=== PATIENT | female | born 1935 | race Caucasian/White ===

== ENCOUNTER → 2016-08-14 | Outpatient (CLI) | payer MEDICARE, BC ==
[2016-08-14 14:57] LABS: Blood Urea Nitrogen 31 mg/dL (7-17); Non-African American GFR(MDRD) >60 (>60 ml/min/1.73 sqM)
--- NOTE | 2016-08-15 07:26 | CT ---
EXAMINATION TYPE: CT ChestAbdPelvis w con DATE OF EXAM: 08/14/2016 5:00 PM COMPARISON: Previous study dated 05/08/2016. 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 CT DLP: 780.1 mGycm Automated exposure control for dose reduction was used. TECHNIQUE: Helical acquisition through the abdomen and pelvis was obtained without oral contrast but following the intravenous administration of 100 mL of Omnipaque 300. The data was formatted in the a xial, coronal and sagittal projections. FINDINGS: There is atelectasis or scarring in the right middle lobe, unchanged from previous. There i s also some scarring in the left lingula. The lungs are otherwise clear. There is no significant axillary, internal mammary, mediastinal or hilar adenopathy. There is no pleu ral or pericardial fluid. The heart is upper limits of normal in size. Within the abdomen, the liver is prominent measuring 20 cm. The spleen and gallbladder are unremarkab le. Both adrenal glands appear normal. The pancreas is unremarkable. Both kidneys demonstrate function and appear morphologically normal. There is no significant retroperitoneal, iliac or inguinal adenopathy. Bladder is unremarkable. The uterus and ovaries are not visualized. There is no significant diverticular change and there is no radiographic evidence of diverticulitis. The appendix is not visualized with certainty. Small bowel loops are normal. There is no evidence of free fluid or free air. There is facet arthropathy in the lower lumbar spine. There is a degenerative grade 1 spondylolisthes is of L4 on L5. There is evidence of hypertrophic spondylosis in the lower dorsal spine. IMPRESSION: 1. NO EVIDENCE OF ADENOPATHY AT THIS TIME. 2. HEPATOMEGALY. 3. DEGENERATIVE CHANGES WITHIN THE SPINE.
--- NOTE | 2016-08-15 07:32 | CT ---
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 CT DLP: 746.6 mGycm Automated exposure control for dose reduction was used. CONTRAST: CT scan of the facial bones is performed with IV Contrast, patient injected with 100 mL of Omnipaque 300. TECHNIQUE: CT scan of the sinuses is performed without contrast, axial images are obtained, coronal r eformatted images are also reviewed. FINDINGS: Beam hardening artifact is present at the level of the mandible. There is opacification of the right maxillary sinus. Small amount of air is within the central portio n. Mild mucosal thickening within the left maxillary sinus. There is opacification of the anterior ri ght ethmoid air cells. Frontal sinuses are aplastic. There is opacification of the sphenoid sinus. There is poor visualization of the osseous wall of the sphenoid sinus adjacent to the left optic fiss ure right maxillary wall resection and partial ethmoidectomy may be present posteriorly. There is thi ckening of the right maxillary wall. Septum is midline. Right uncinectomies been performed. Left ostiomeatal unit is patent. There is some loss of the floor the orbit on the right near the previous hiatus semilunaris. This is stable from c omparison. Enhancement pattern of the sinuses appears stable. IMPRESSION: 1. Stable postsurgical changes through the sinuses. There is opacification of the sphenoid and of the right maxillary sinus. Underlying tumor and sinusitis as well as postsurgical changes would be withi n the differential. Continued monitoring is recommended.
== END | disposition home or self-care (01) ==
LOC: RADCTMAIN 13:48
PROVIDERS: ATTEND Internal Medicine Hematology & Oncology
DX: C85.90 Non-Hodgkin lymphoma, unspecified, unspecified site (principal); J34.89 Other specified disorders of nose and nasal sinuses; R16.0 Hepatomegaly, not elsewhere classified; Z98.890 Other specified postprocedural states
CPT/HCPCS: 82565; 84520; 70487; 71260; 74177; 36415; Q9967

== ENCOUNTER → 2016-11-12 | Outpatient (CLI) | payer MEDICARE, BC ==
[2016-11-12 10:34] LABS: Blood Urea Nitrogen 29 mg/dL (7-17); Non-African American GFR(MDRD) >60 (>60 ml/min/1.73 sqM)
--- NOTE | 2016-11-12 12:51 | CT ---
EXAMINATION TYPE: CT facial bones w con DATE OF EXAM: 11/12/2016 12:39 PM COMPARISON: August 14, 2016 HISTORY: Patient has no complaints at time of service. Patient has history of lymphoma and sinus ca. CT DLP: 621.5 mGycm Automated exposure control for dose reduction was used. CONTRAST: CT scan of the facial bones is performed with IV Contrast, patient injected with 100 mL of Omnipaque 300. TECHNIQUE: CT scan of the sinuses is performed without contrast, axial images are obtained, coronal r eformatted images are also reviewed. FINDINGS: Postsurgical changes of right medial maxillary antrectomy noted. There is evidence of mucosal thicken ing with peripheral enhancement noted. Soft tissue is noted to surround the posterior wall of the rig ht maxillary sinus with osseous irregularity noted. There is also osseous irregularity involving the floor of the right orbit and right zygoma. The left maxillary sinus that demonstrates minimal mucosal thickening. There is soft tissue expansion of the sphenoid sinus unchanged from prior study. There i s osseous irregularity involving adjacent ethmoid air cell. IMPRESSION: 1. Stable soft tissue expansion of the sphenoid sinus without definite cavernous sinus extension at t his time. 2. Irregular enhancement right maxillary sinus with soft tissue surrounding the posterior wall of the right maxillary sinus. Osseous irregularity as noted above all stable. No new masses appreciated.
--- NOTE | 2016-11-12 12:59 | CT ---
EXAMINATION TYPE: CT ChestAbdPelvis w con DATE OF EXAM: 11/12/2016 12:40 PM COMPARISON: August 14, 2016 HISTORY: Patient has no complaints at time of service. Patient has history of lymphoma and sinus ca. CT DLP: 737.8 mGycm CONTRAST: CT scan of the chest, abdomen and pelvis is performed with Oral Contrast and with IV Contrast, patien t injected with 100 mL of Omnipaque 300. CT Chest: LUNGS: The lungs are clear and free of infiltrate or atelectasis. No pulmonary nodule or mass is det ected. No pleural effusion. Mild scattered subpleural fibrosis. MEDIASTINUM: Thoracic aorta is of normal caliber. Atheromatous changes identified. The heart is mild ly enlarged. No evidence for mediastinal mass or adenopathy. HILAR STRUCTURES: No evidence for mass. No hilar adenopathy is appreciated. OTHER: No significant abnormality. CONTRAST CT ABDOMEN AND PELVIS FINDINGS: LIVER/GB: No calcified gallstones. There is evidence of hepatic steatosis. No space occupying hepa tic lesion. Biliary tree is of normal caliber. PANCREAS: No inflammation. No distinct mass. SPLEEN: No splenic enlargement. No lesion seen. ADRENALS: No nodule. No thickening. KIDNEYS/BLADDER: Extrarenal pelvis seen bilaterally left greater than right. No hydronephrosis. No n ephrolithiasis. No disctinct renal mass. BOWEL: Normal appendix. Normal bowel caliber. No inflammation. GENITAL ORGANS: No gross abnormality. LYMPH NODES: No greater than 1cm abdominal or pelvic lymph nodes are appreciated. AORTA: No significant abnormality. OSSEOUS STRUCTURES: Degenerative changes of the spine. OTHER: No significant additional abnormality is seen. IMPRESSION: 1. No evidence for adenopathy within the chest abdomen or pelvis. 2. Hepatic steatosis with mild hepatomegaly.
== END | disposition home or self-care (01) ==
LOC: RADCTMAIN 09:35
PROVIDERS: ATTEND Internal Medicine Hematology & Oncology
DX: C83.31 Diffuse large B-cell lymphoma, lymph nodes of head, face, and neck (principal); K76.0 Fatty (change of) liver, not elsewhere classified; R16.0 Hepatomegaly, not elsewhere classified; Z88.2 Allergy status to sulfonamides
CPT/HCPCS: 82565; 84520; 70487; 71260; 74177; 36415; Q9967; J1642

== ENCOUNTER → 2017-04-10 | Outpatient (CLI) | payer MEDICARE, BC ==
[2017-04-10 09:42] LABS: Blood Urea Nitrogen 24 mg/dL (7-17); Non-African American GFR(MDRD) 57 (>60 ml/min/1.73 sqM)
--- NOTE | 2017-04-10 11:48 | CT ---
EXAMINATION TYPE: CT ChestAbdPelvis w con DATE OF EXAM: 04/10/2017 COMPARISON: 11/12/2016 and 01/08/2016 HISTORY: Lymphoma follow up CT DLP: 1679 mGycm. Automated Exposure Control for Dose Reduction was Utilized. CONTRAST: CT scan of the thorax, abdomen and pelvis is performed with IV Contrast, patient injected with 80 mL of Visipaque 320. FINDINGS: LUNGS: The lungs are grossly clear, there is no concerning parenchymal mass identified. 3 mm pulmonar y nodule seen within the right middle lobe on series 4 image 28, which is unchanged retrospectively i n comparison to the prior examinations. There is no pleural effusion or pneumothorax seen. The trach eobronchial tree is patent. Chronic pleural parenchymal scarring is seen within the right middle lobe and lingula. MEDIASTINUM: There are no greater than 1 cm hilar or mediastinal lymph nodes. No pericardial effusi on is seen. Heart is again mildly enlarged. OTHER: Three-vessel coronary calcifications are identified, moderate in degree. LIVER/GB: No evidence of hepatic steatosis on the current examination. No intrahepatic biliary ductal dilatation. Hepatic parenchyma enhances homogeneously. Gallbladder is unremarkable. PANCREAS: There is pancreatic parenchymal mild atrophy without ductal prominence without identifiable pancreatic head lesion. This is similar in comparison to the prior exams. SPLEEN: No significant abnormality is seen. ADRENALS: Adrenal gland are unchanged in comparison to priors with slight thickening of the left adre nal gland in comparison to the right without discrete measurable nodule likely relating to adrenal gl and hyperplasia. KIDNEYS: No significant abnormality is seen. BOWEL: Few sigmoid diverticula are present without pericolonic fat stranding. Rectum is nondistended. Moderate amount retained stool is seen throughout the nondilated bowel. GENITAL ORGANS: Again the uterus appears to be surgically absent. LYMPH NODES: No greater than 1cm abdominal or pelvic lymph nodes are appreciated. OSSEOUS STRUCTURES: Mild multilevel degenerative changes are seen. OTHER: Abdominal aorta is of normal course and caliber with moderate calcific atheromatous changes. IMPRESSION: 1. No evidence of adenopathy within the chest, abdomen, or pelvis in this patient with a provided his tory of lymphoma. 2. Mild pancreatic ductal prominence. MRCP could be utilized for further evaluation if clinically ind icated. 3. Colonic diverticulosis without evidence of diverticulitis.
--- NOTE | 2017-04-10 12:26 | CT ---
EXAMINATION TYPE: CT facial bones w con DATE OF EXAM: 04/10/2017 COMPARISON: 11/12/2016 HISTORY: Lymphoma and sinus carcinoma. CT DLP: 438 mGycm Automated exposure control for dose reduction was used. CONTRAST: CT scan of the facial bones is performed with IV Contrast, patient injected with 80 mL of Visipaque 3 20. TECHNIQUE: CT scan of the sinuses is performed without contrast, axial images are obtained, coronal r eformatted images are also reviewed. FINDINGS: Stable expansile soft tissue masses seen within the sphenoid sinus with remodeling of the s phenoid bone and thinning of the anterior margin abutting the ethmoid sinuses with persistent cortica l erosion on series 4 image 27 measuring 4.4 mm. There is dehiscence of the lateral wall at the media l aspect of the medial rectus on the left on series 4 image 25 there is also erosion of the posterior left lateral wall abutting the cavernous sinus and left internal carotid artery on series 4 image 26 as well as of the supraclinoid portion of the left internal carotid artery on series 3 image 24. Persistent circumferential mucosal thickening within the right maxillary sinus is seen with antrostom y defect and mucoperiosteal thickening as well as cortical disruption of the inferior medial wall and lamellated high density on series 3 image 37 internally representing hemorrhage and/or complex debri s such as fungal infection. The left maxillary sinus contains only a scant amount of mucosal thickening as do the ethmoid sinuses . Frontal sinuses are hypoplastic but well aerated. Mastoid air cells and inner ears are unremarkable . 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 Note the exam is not optimized for the evaluation of the intracranial structures however confluent areas of hypoattenuation are see n within the periventricular and subcortical white matter as well as dystrophic calcification of the left caudate head and symmetric prominence of the peripheral sulci and ventricular system. IMPRESSION: 1. 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 2. Redemonstration of right maxillary sinus complex mucosal thickening and mucoperiosteal thickening with irregular inferior lateral wall and focal areas of cortical erosion. 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 This finding is si milar to the prior exam of 11/12/2016.
== END | disposition home or self-care (01) ==
LOC: RADPROMAIN 08:58
PROVIDERS: ATTEND Internal Medicine Hematology & Oncology
DX: K57.30 Diverticulosis of large intestine without perforation or abscess without bleeding (principal); K86.89 Other specified diseases of pancreas; J34.89 Other specified disorders of nose and nasal sinuses; C83.31 Diffuse large B-cell lymphoma, lymph nodes of head, face, and neck; Z88.2 Allergy status to sulfonamides
CPT/HCPCS: 82565; 84520; 70487; 71260; 74177; Q9967; J1642

== ENCOUNTER → 2017-08-13 | Outpatient (CLI) | payer MEDICARE, BC ==
[2017-08-13 11:33] LABS: Blood Urea Nitrogen 33 mg/dL (7-17)
--- NOTE | 2017-08-13 13:15 | CT ---
EXAMINATION TYPE: CT facial bones w con DATE OF EXAM: 08/13/2017 COMPARISON: 04/10/2017 and PET/CT 03/02/2016 HISTORY: 81-year-old female Follow up to lymphoma, originated Rt facial TECHNIQUE: Contiguous axial scanning of the facial bones performed with IV Contrast, patient injected with 100 mL of Omnipaque 300. Coronal reconstructions performed. CT DLP: 635.1 mGycm Automated exposure control for dose reduction was used. FINDINGS: Visualized intracranial structures show confluent white matter hypodensities that could relate to bryan or radiation therapy or severe changes of chronic small vessel ischemic disease. Orbits and globes ap pear intact and mastoid air cells appear clear. Reactive valentino-osteogenesis involving the right maxillary sinus wall with a continued moderate to sever e mucosal thickening. The intrinsic hyperdense material show some improvement as does the mild retrom axillary soft tissue thickening. A small air-fluid level may be present here. Redemonstrated expansile lesion of the left sphenoid sinus measuring up to 3.0 cm versus 2.7 cm on and 2.9 cm on 11/12/2016. This was noted to be nonmetabolic on the patient's 03/02/2016 PET/CT. IMPRESSION: 1. OVERALL STABLE APPEARANCE WITH CHRONIC REACTIVE BONY CHANGES OF THE RIGHT MAXILLARY SINUS LEON AN D RIGHT ORBITAL FLOOR TO THE PATIENT'S PREVIOUS LYMPHOMA. MUCOSAL THICKENING AND SOME FLUID REMAINS I N THE RIGHT MAXILLARY SINUS AND MINIMAL RETROMAXILLARY SOFT TISSUE THICKENING IS STABLE FROM 04/10/20 17, IMPROVED FROM 11/12/2016. NO CONVINCING FINDINGS OF TUMOR RECURRENCE. 2. CHRONIC EXPANSILE LESION OF THE SPHENOID SINUS NOTED TO BE NONMETABOLIC ON THE 03/02/2016 PET/CT, NE OBABLE MUCOCELE.
--- NOTE | 2017-08-13 13:44 | CT ---
EXAMINATION TYPE: CT ChestAbdPelvis w con DATE OF EXAM: 08/13/2017 COMPARISON: 04/10/2017 and 05/08/2016 HISTORY: 81-year-old female Follow up to lymphoma, originated Rt facial TECHNIQUE: Contiguous axial scanning of the chest, abdomen, and pelvis performed with IV Contrast, pa tient injected with 100 mL of Omnipaque 300. Delayed images through the kidneys were obtained. Bryant l/sagittal reconstructions performed. CT DLP: 993.5 mGycm Automated exposure control for dose reduction was used. FINDINGS: CHEST: Facial bones reported separately. Right anterior chest wall injection port with catheter tip at the cavoatrial junction. Heart upper limits of normal in size without pericardial effusion. Coronary vessel calcifications are present in remarkable for coronary artery disease. Aorta normal caliber with a mild atherosclerotic calcifications and conventional arch vessel branchin g anatomy. A 1.6 cm hypodense nodule posterior left thyroid lobe is stable from 04/10/2017 but not clearly seen on 05/08/2016. No thoracic lymphadenopathy. Evaluation of the lungs show streaky areas of scarring anteriorly and at the lung bases. No consolida tion or pleural effusion. ABDOMEN: Liver mildly enlarged measuring 18.9 cm craniocaudal. Portal venous system is patent. No focal liver lesions seen. No biliary ductal dilatation. A small 1 cm cyst within the uncinate process, axial image 57 is unchanged from 05/08/2016. Similar mi ld diffuse pancreatic atrophy. Gallbladder, adrenal glands, kidneys, and spleen appear within normal limits. No dilated small bowel, free fluid, or free air. No mesenteric or retroperitoneal lymphadenopathy. Mild to moderate atherosclerotic calcifications abdominal aorta and iliac arteries. Moderate stool burden. Oral contrast progressed to the hepatic flexure. There is diverticulosis at th e junction of the descending and sigmoid colon without pericolonic inflammatory change. Pelvis: Bladder incompletely distended. Uterus surgically absent. Multiple pelvic phleboliths. The right ovar y is visualized. Left ovary not clearly seen. No abnormal fluid collection in the pelvis or pelvic ly mphadenopathy. Bones: Degenerative changes at the pubic symphysis, SI joints, and lower lumbar spine with grade 1 anterolis thesis at L4-L5. IMPRESSION: 1. NO SUSPICIOUS LYMPHADENOPATHY TO SUGGEST LYMPHOMA IN THE CHEST, ABDOMEN, OR PELVIS. 2. A 1.6 CM HYPODENSE NODULE IN THE LEFT LOBE OF THE THYROID GLAND WAS NOT CLEARLY SEEN ON 05/08/2016. RECOMMEND THYROID ULTRASOUND TO FURTHER EVALUATE. 3. STABLE 1 CM UNCINATE PROCESS CYST COMPARED TO 05/08/2016. 4. LEFT-SIDED DIVERTICULOSIS.
== END | disposition home or self-care (01) ==
LOC: RADPROMAIN 10:23
PROVIDERS: ATTEND Internal Medicine Hematology & Oncology
DX: C83.31 Diffuse large B-cell lymphoma, lymph nodes of head, face, and neck (principal); K86.2 Cyst of pancreas; K57.30 Diverticulosis of large intestine without perforation or abscess without bleeding; J32.0 Chronic maxillary sinusitis; J32.3 Chronic sphenoidal sinusitis
CPT/HCPCS: 82565; 84520; 70487; 71260; 74177; Q9967; J1642

== ENCOUNTER → 2017-12-15 | Outpatient (CLI) | payer MEDICARE, BC ==
--- NOTE | 2017-12-15 13:18 | CT ---
EXAMINATION TYPE: CT facial bones w con DATE OF EXAM: 12/15/2017 COMPARISON: CT facial bones August 13, 2017 and older studies back to January 06, 2016 HISTORY: Lymphoma right side orbital area CT DLP: 546.61 mGycm Automated exposure control for dose reduction was used. CONTRAST: CT scan of the facial bones is performed with IV Contrast, patient injected with 80 mL of Isovue 300. TECHNIQUE: CT scan of the facial bones is performed with IV contrast, axial images are obtained, jean carlos nal reformatted images are also reviewed. FINDINGS: Deformity and thickening with sclerosis involving maxillary sinus davis most prominent righ t posterior lateral wall remains present. There is persistent patchy fluid in the right maxillary sin us slightly improved from most recent study. There is no suspicious new abnormal soft tissue density involving the right cheek, sinus, or orbital region without significant change from most recent CT. L arge lobulated mass was present on original study at this level. Oval well-defined hypodense area pos terior lateral aspect right maxillary sinus axial image 39 could reflect prominent focal fat is uncha nged from most recent study. There is persistent hyperdense or heterogeneous enhancing sphenoid sinus mass measuring 2.3 x 1.8 cm axial image 53 not significantly changed from prior study. This is unchanged in appearance from PET C T March 02, 2016 axial image 42. There is thinning of the adjacent bone without destruction. There is mild diffuse cerebral atrophy and moderate to advanced hypodensity in the deep and periventr icular white matter favoring product of chronic small vessel ischemic change in the visualized brain parenchyma. There is dominant distal left vertebral artery with calcified peripheral plaque redemonst rated. IMPRESSION: No new suspicious hypodense soft tissue masses to suggest recurrent lymphoma. No signifi cant change from most recent CT.
--- NOTE | 2017-12-15 13:26 | CT ---
EXAMINATION TYPE: CT ChestAbdPelvis w con DATE OF EXAM: 12/15/2017 COMPARISON: CT chest abdomen and pelvis August 13, 2017 and older studies. PET/CT March 02, 2016 HISTORY: Lymphoma on face progress study. Originally diagnosed 2015. CT DLP: 1774.39 mGycm. Automated Exposure Control for Dose Reduction was Utilized. CONTRAST: CT scan of the thorax, abdomen and pelvis is performed with oral and with IV Contrast, patient inject ed with 80 mL of Isovue 300. FINDINGS: LUNGS: Anterior scarring bilateral mid and lower lungs is redemonstrated. No suspicious new nodule or mass is present. Tracheobronchial tree is patent. No pleural effusion or pneumothorax is noted bilat erally MEDIASTINUM: There are no greater than 1 cm hilar or mediastinal lymph nodes. No pericardial effusi on is seen. There is stable mild cardiomegaly. Main pulmonary artery measures 3.0 cm diameter axial image 24, adjacent ascending aorta measures up to 3.3 cm in diameter. There is mild to moderate mixed plaque in the aorta. There is coronary artery calcification redemonstrated which is noted marker for coronary artery disease. OTHER: There is stable right internal jugular Mediport catheter. Suspect surgical clip left breast ax ial image 23 unchanged from prior. Stable 1.5 cm posterior left thyroid nodule axial image 10. LIVER/GB: No significant abnormality is appreciated. PANCREAS: Some mild generalized atrophy with ductal prominence of pancreas is unchanged from prior st udies. Stable 1.2 x 0.7 cm thin-walled cystic lesion uncinate process axial image 55. SPLEEN: No significant abnormality is seen. ADRENALS: Stable asymmetric thickening to left adrenal gland favors benign hyperplasia. KIDNEYS: No significant abnormality is seen. BOWEL: A few diverticula in the proximal sigmoid colon are redemonstrated. GENITAL ORGANS: Scattered pelvic phleboliths are present. LYMPH NODES: No greater than 1cm abdominal or pelvic lymph nodes are appreciated. OSSEOUS STRUCTURES: There is moderate multilevel spurring in the thoracolumbar spine. Exaggerated spi nal curvature on sagittal images is redemonstrated. OTHER: There is moderate calcified plaque of aorta extending into branch vessels. IMPRESSION: No new adenopathy is seen to suggest lymphoma recurrence.
== END | disposition home or self-care (01) ==
LOC: RADPROMAIN 08:27
PROVIDERS: ATTEND Internal Medicine Hematology & Oncology
DX: C83.31 Diffuse large B-cell lymphoma, lymph nodes of head, face, and neck (principal); Z88.2 Allergy status to sulfonamides
CPT/HCPCS: 82565; 84520; 70487; 71260; 74177; J1642; Q9967

== ENCOUNTER → 2018-04-21 | Outpatient (CLI) | payer MEDICARE, BC ==
--- NOTE | 2018-04-21 14:44 | CT ---
EXAMINATION TYPE: CT ChestAbdPelvis w con DATE OF EXAM: 04/21/2018 COMPARISON: 12/15/2017 HISTORY: 82-year-old female f/u lymphoma TECHNIQUE: Contiguous axial scanning of the chest, abdomen, and pelvis performed with IV Contrast, pa tient injected with 100 mL of Isovue 300. Delayed images through the kidneys were obtained. Coronal/s agittal reconstructions performed. CT DLP: 1522.13 mGycm Automated exposure control for dose reduction was used. FINDINGS: Chest: Heart upper limits of normal in size without pericardial effusion. Coronary vessel calcifications are present in remarkable for coronary artery disease. Right anterior chest wall injection port with catheter tip at the lower SVC. Aorta normal caliber with conventional arch vessel branching anatomy and mild atelectatic calcificati ons. Borderline sized caliber to the main right and left pulmonary arteries measuring up to 2.6 cm suggest ing underlying pulmonary hypertension. No thoracic lymphadenopathy. Evaluation of the lungs show strandy areas of atelectasis or scarring especially in the mid and lower lungs. No consolidation or pleural effusion. ABDOMEN: Liver mildly enlarged measuring 18.4 cm craniocaudal. Portal venous system is patent. No biliary duct al dilatation. Right adrenal gland, right kidney, spleen, pancreas appear within normal limits. Mild diffuse thickening of the left adrenal gland is unchanged. Cortical calcification upper pole left kidney is unchanged. No dilated small bowel, free fluid, or free air. Numerous nonenlarged mid mesenteric lymph nodes are unchanged. Moderate stool burden. Oral contrast progressed to the transverse colon. There is diverticulosis at t he sigmoid colon without pericolonic inflammatory change. Pelvis: Bladder partially distended. Multiple surgical clips in the pelvis status post hysterectomy. What anabell ears to be the right ovary is utilized. Left ovary not clearly seen. No abnormal fluid collection in the pelvis or pelvic lymphadenopathy seen. Bones: Mild degenerative changes at the hips and SI joints. Additional degenerative changes lower lumbar spi ne with grade 1 anterolisthesis at L4-L5. No osseous destructive process. Endplate spondylosis lower thoracic spine. IMPRESSION: 1. NO SUSPICIOUS LYMPHADENOPATHY TO SUGGEST RECURRENT LYMPHOMA. 2. POSSIBLE UNDERLYING PULMONARY ARTERIAL HYPERTENSION, BORDERLINE HEPATOMEGALY (18.4 CM), AND SIGMOI D DIVERTICULOSIS.
--- NOTE | 2018-04-21 14:59 | CT ---
EXAMINATION TYPE: CT facial bones w con DATE OF EXAM: 04/21/2018 COMPARISON: 12/15/2017 HISTORY: 82-year-old female f/u lymphoma TECHNIQUE: Contiguous axial scanning of the facial bones performed with IV Contrast, patient injected with 100 mL of Isovue 300. Coronal reconstructions performed. CT DLP: 522.30 mGycm Automated exposure control for dose reduction was used. FINDINGS: Partially visualized right IJ catheter. Moderate brain atrophy and patchy changes of chronic small vessel ischemic disease. Orbits and globes appear intact. Redemonstrated expansile soft tissue lesion within the sphenoid sinus with similar thinning or erosio n through the floor of the sella. This measures 2.6 x 1.8 cm, relatively unchanged allowing for diffe rences in measurement technique. Chronic osseous thickening of the right maxillary sinus davis with submitted. Mucoid debris. Mild muc osal thickening left maxillary sinus and scattered throughout the ethmoid air cells redemonstrated. Cerumen within the bilateral external auditory canals. Nasal pharynx and visualized oropharynx are clear. IMPRESSION: 1. STABLE 2.6 CM SOFT TISSUE LESION CENTERED WITHIN THE SPHENOID SINUS THINNING OR CHRONICALLY ERODIN G THROUGH THE FLOOR OF THE SELLA. 2. 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
== END | disposition home or self-care (01) ==
LOC: RADPROMAIN 09:59
PROVIDERS: ATTEND Internal Medicine Hematology & Oncology
DX: C83.31 Diffuse large B-cell lymphoma, lymph nodes of head, face, and neck (principal); J34.89 Other specified disorders of nose and nasal sinuses; K57.30 Diverticulosis of large intestine without perforation or abscess without bleeding; R16.0 Hepatomegaly, not elsewhere classified; Z88.2 Allergy status to sulfonamides
CPT/HCPCS: 82565; 84520; 70487; 71260; 74177; J1642; Q9967

== ENCOUNTER 2018-07-15 04:21 | Emergency (ER) | payer MEDICARE, BC ==
[2018-07-15 04:37] LABS: Glucose,Whole Blood 182 mg/dL (75-99)
[2018-07-15 04:39] LABS: Appearance,Urine Clear (Clear); Bilirubin,Urine Negative (Negative); Blood,Urine Negative (Negative); Color,Urine Light Yellow; Glucose,Urine (UA) 4+ (Negative); Ketones,Urine Negative (Negative); Leukocyte Esterase,Urine Negative (Negative); Nitrite,Urine Negative (Negative); PH, Urine 5.5 (5.0-8.0); Protein,Urine Negative (Negative); Specific Gravity,Urine 1.003 (1.001-1.035); Urobilinogen,Urine <2.0 mg/dL (<2.0)
[2018-07-15] MEDS ORDERED: SODIUM CHLORIDE 0.9% 1,000 ML IV STA (04:55)
[2018-07-15 05:18] LABS: Basophils # (A) 0.1 k/uL (0-0.2); Basophils % (A) 2 %; Eosinophils # (A) 0.3 k/uL (0-0.7); Eosinophils % (A) 4 %; HCT 42.9 % (34.0-46.0); Lymphocytes # (A) 1.2 k/uL (1.0-4.8); Lymphocytes % (A) 20 %; MCH 30.9 pg (25.0-35.0); MCHC 32.8 g/dL (31.0-37.0); MCV 94.4 fL (80.0-100.0); Mean Platelet Volume 7.1; Monocytes # (A) 0.4 k/uL (0-1.0); Monocytes % (A) 7 %; Neutrophils # (A) 3.9 k/uL (1.3-7.7); Neutrophils % (A) 65 %; Platelet Count 261 k/uL (150-450); RBC 4.54 m/uL (3.80-5.40); RDW 13.1 % (11.5-15.5)
[2018-07-15 05:30] LABS: Albumin 4.2 g/dL (3.5-5.0); Calcium 9.2 mg/dL (8.4-10.2); Potassium 4.1 mmol/L (3.5-5.1); Total Bilirubin 0.6 mg/dL (0.2-1.3); Total Protein 6.5 g/dL (6.3-8.2)
[2018-07-15 05:32] LABS: INR 1.1 (<1.2); Partial Thromboplastin Time 22.9 sec (22.0-30.0); Prothrombin Time 11.2 sec (9.0-12.0)
--- NOTE | 2018-07-15 05:37 | ED ---
General Adult HPI - General Chief complaint: Nausea/Vomiting/Diarrhea Stated complaint: weakness,upper abd pain Time Seen by Provider: 07/15/18 04:55 Source: patient Mode of arrival: ambulatory Limitations: no limitations - History of Present Illness Initial comments: Is a pleasant 82-year-old female who is brought to the ED today by her son-in- law for evaluation of generalized malaise and inability to sleep. Patient reports that over the weekend she had some nausea vomiting and diarrhea, she states that she saw her primary care physician and was prescribed an antiemetic medication. She reports she has not had any further vomiting or diarrhea since Friday. She reports that she is just not feeling well and has not been able to sleep. Patient reports she was awake all night not feeling well at which time she decided contact her son-in-law to bring the hospital for evaluation. Patient denies any specific complaints aside from the inability to sleep. She denies any headache, vision changes, runny stuffy nose, cough congestion, chest pain, palpitations when nausea, vomiting change or bowel or bladder habits. She denies any rashes or injuries. - Related Data Home Medications Medication Instructions Recorded Confirmed Benazepril/Hydrochlorothiazide 1 tab PO DAILY 01/06/16 01/27/16 [Lotensin Hct 20-12.5 mg Tablet] Esomeprazole Magnesium [NexIUM] 40 mg PO BID 01/06/16 01/27/16 metFORMIN HCL 1,000 mg PO BID 01/06/16 01/27/16 NIFEdipine [Procardia XL] 90 mg PO DAILY 01/07/16 01/27/16 Vits A,C,E/Lutein/Minerals 1 tab PO BID 01/07/16 01/27/16 [Ocuvite with Lutein Tablet] Ascorbic Acid [Vitamin C] 500 mg PO DAILY 01/27/16 01/27/16 glipiZIDE [Glipizide Xl] 10 mg PO DAILY 01/27/16 01/27/16 Previous Rx's Medication Instructions Recorded Atorvastatin [Lipitor] 40 mg PO HS tab 01/09/16 Citalopram Hydrobromide [CeleXA] 20 mg PO DAILY tab 01/09/16 Labetalol [Trandate] 200 mg PO DAILY tab 01/09/16 Allergies Allergy/AdvReac Type Severity Reaction Status Date / Time Sulfa (Sulfonamide Allergy Unknown Verified 07/15/18 04:30 Antibiotics) Review of Systems ROS Statement: Those systems with pertinent positive or pertinent negative responses have been documented in the HPI. ROS Other: All systems not noted in ROS Statement are negative. Past Medical History Past Medical History: Cancer, Diabetes Mellitus, GERD/Reflux, Hyperlipidemia, Hypertension, Osteoarthritis (OA) Additional Past Medical History / Comment(s): lymphoma, hx skin cancer, some memory loss at times, History of Any Multi-Drug Resistant Organisms: None Reported Past Surgical History: Appendectomy, Hysterectomy, Tonsillectomy Additional Past Surgical History / Comment(s): [facility] mallory cataracts, ORIF left ankle, Past Anesthesia/Blood Transfusion Reactions: No Reported Reaction Past Psychological History: Anxiety, Depression Smoking Status: Never smoker Past Alcohol Use History: None Reported Past Drug Use History: None Reported - Past Family History Mother Family Medical History: Cancer Additional Family Medical History / Comment(s): abdominal cancer Father History Unknown: Yes Family Medical History: Cancer Additional Family Medical History / Comment(s): brain tumor Brother(s) Family Medical History: Cancer General Exam - General Exam Comments Initial Comments: Physical Exam GENERAL: Patient is well-developed and well-nourished. Patient is nontoxic and well- hydrated and is in no distress. HENT: Normocephalic, Atraumatic. EYES: PERRL, EOMI PULMONARY: Unlabored respirations. No audible rales rhonchi or wheezing was noted. CARDIOVASCULAR: There is a regular rate and rhythm without any murmurs gallops or rubs. ABDOMEN: Soft and nontender with normal bowel sounds. SKIN: Skin is clear with no lesions or rashes and otherwise unremarkable. : Deferred NEUROLOGIC: Patient is alert and oriented x3. Moving all extremities spontaneously MUSCULOSKELETAL: Normal extremities with adequate strength and full range of motion. No lower extremity swelling or edema. No calf tenderness. PSYCHIATRIC: Normal psychiatric evaluation. Limitations: no limitations Limitations: no limitations Course Vital Signs 07/15/18 07/15/18 07/15/18 04:27 05:57 06:06 Temperature 97.6 F 98.3 F Pulse Rate 65 73 Respiratory 17 17 19 Rate Blood Pressure 146/93 155/99 O2 Sat by Pulse 95 96 Oximetry EKG Findings - EKG Comments: EKG Findings:: EKG obtained at 4:43 AM, rate is 66 there is a P-wave before each QRS, rhythm is sinus, there is leftward deviation, normal intervals, IL 162 , QRS 80, QTC 417. There is no acute ST elevations or depressions no evidence of acute ischemia infarction or arrhythmia. Medical Decision Making - Medical Decision Making She was seen and evaluated history is obtained from patient and son-in-law Patient with recent nausea or vomiting, now having generalized fatigue Labs and a G were ordered EKG is nonischemic Labs no significant abnormalities urinalysis no evidence to be TIA I signed patient was reevaluated after receiving 1 L IV fluids, patient resting comfortably reports feeling much better after fluids. Patient was reassured by her normal labs no signs of urinary infection. At this time patient is eager for discharge home she states she is feeling very hungry for the first time in a few days and would like to get breakfast on the drive home. All questions pertaining to care were answered best my ability return parameters were discussed the patient was discharged home in stable condition. - Lab Data Result diagrams: 07/15/18 05:05 07/15/18 05:05 Lab Results 07/15/18 07/15/18 07/15/18 Range/Units 04:30 04:36 05:05 WBC 6.0 (3.8-10.6) k/uL RBC 4.54 (3.80-5.40) m/uL Hgb 14.0 (11.4-16.0) gm/dL Hct 42.9 (34.0-46.0) % MCV 94.4 (80.0-100.0) fL MCH 30.9 (25.0-35.0) pg MCHC 32.8 (31.0-37.0) g/dL RDW 13.1 (11.5-15.5) % Plt Count 261 (150-450) k/uL Neutrophils % 65 % Lymphocytes % 20 % Monocytes % 7 % Eosinophils % 4 % Basophils % 2 % Neutrophils # 3.9 (1.3-7.7) k/uL Lymphocytes # 1.2 (1.0-4.8) k/uL Monocytes # 0.4 (0-1.0) k/uL Eosinophils # 0.3 (0-0.7) k/uL Basophils # 0.1 (0-0.2) k/uL PT (9.0-12.0) sec INR (<1.2) APTT (22.0-30.0) sec Sodium (137-145) mmol/L Potassium (3.5-5.1) mmol/L Chloride (98-107) mmol/L Carbon Dioxide (22-30) mmol/L Anion Gap mmol/L BUN (7-17) mg/dL Creatinine (0.52-1.04) mg/dL Est GFR (CKD-EPI)AfAm (>60 ml/min/1.73 sqM) Est GFR (CKD-EPI)NonAf (>60 ml/min/1.73 sqM) Glucose (74-99) mg/dL POC Glucose (mg/dL) 182 H (75-99) mg/dL POC Glu Nursing Home Administrator ID Yuly Tyson Calcium (8.4-10.2) mg/dL Total Bilirubin (0.2-1.3) mg/dL AST (14-36) U/L ALT (9-52) U/L Alkaline Phosphatase (38-126) U/L Troponin I (0.000-0.034) ng/mL Total Protein (6.3-8.2) g/dL Albumin (3.5-5.0) g/dL Lipase (23-300) U/L Urine Color Light Yellow Urine Appearance Clear (Clear) Urine pH 5.5 (5.0-8.0) Ur Specific [place] 1.003 (1.001-1.035) Urine Protein Negative (Negative) Urine Glucose (UA) 4+ H (Negative) Urine Ketones Negative (Negative) Urine Blood Negative (Negative) Urine Nitrite Negative (Negative) Urine Bilirubin Negative (Negative) Urine Urobilinogen <2.0 (<2.0) mg/dL Ur Leukocyte Esterase Negative (Negative) 07/15/18 07/15/18 07/15/18 Range/Units 05:05 05:05 05:05 WBC (3.8-10.6) k/uL RBC (3.80-5.40) m/uL Hgb (11.4-16.0) gm/dL Hct (34.0-46.0) % MCV (80.0-100.0) fL MCH (25.0-35.0) pg MCHC (31.0-37.0) g/dL RDW (11.5-15.5) % Plt Count (150-450) k/uL Neutrophils % % Lymphocytes % % Monocytes % % Eosinophils % % Basophils % % Neutrophils # (1.3-7.7) k/uL Lymphocytes # (1.0-4.8) k/uL Monocytes # (0-1.0) k/uL Eosinophils # (0-0.7) k/uL Basophils # (0-0.2) k/uL PT 11.2 (9.0-12.0) sec INR 1.1 (<1.2) APTT 22.9 (22.0-30.0) sec Sodium 139 (137-145) mmol/L Potassium 4.1 (3.5-5.1) mmol/L Chloride 105 (98-107) mmol/L Carbon Dioxide 23 (22-30) mmol/L Anion Gap 11 mmol/L BUN 32 H (7-17) mg/dL Creatinine 0.90 (0.52-1.04) mg/dL Est GFR (CKD-EPI)AfAm 70 (>60 ml/min/1.73 sqM) Est GFR (CKD-EPI)NonAf 60 (>60 ml/min/1.73 sqM) Glucose 179 H (74-99) mg/dL POC Glucose (mg/dL) (75-99) mg/dL POC Glu Nursing Home Administrator ID Calcium 9.2 (8.4-10.2) mg/dL Total Bilirubin 0.6 (0.2-1.3) mg/dL AST 18 (14-36) U/L ALT 29 (9-52) U/L Alkaline Phosphatase 49 (38-126) U/L Troponin I <0.012 (0.000-0.034) ng/mL Total Protein 6.5 (6.3-8.2) g/dL Albumin 4.2 (3.5-5.0) g/dL Lipase 87 (23-300) U/L Urine Color Urine Appearance (Clear) Urine pH (5.0-8.0) Ur Specific [place] (1.001-1.035) Urine Protein (Negative) Urine Glucose (UA) (Negative) Urine Ketones (Negative) Urine Blood (Negative) Urine Nitrite (Negative) Urine Bilirubin (Negative) Urine Urobilinogen (<2.0) mg/dL Ur Leukocyte Esterase (Negative) Disposition Clinical Impression: Dehydration Disposition: HOME SELF-CARE Instructions: Acute Nausea and Vomiting (ED) Is patient prescribed a controlled substance at d/c from ED?: No Referrals: Steffanie Hernandez DO [Primary Care Provider] - 1-2 days Time of Disposition: 06:20
[2018-07-15 06:09] VITALS: BP 155/99; PULSE 73; RESP 19; TEMP 98.3
== END 2018-07-15 06:26 | disposition home or self-care (01) ==
LOC: EC 04:21
DX: E86.0 Dehydration (principal); R11.2 Nausea with vomiting, unspecified; G47.00 Insomnia, unspecified; R19.7 Diarrhea, unspecified; E11.9 Type 2 diabetes mellitus without complications; I10 Essential (primary) hypertension; K21.9 Gastro-esophageal reflux disease without esophagitis; Z88.2 Allergy status to sulfonamides; Z79.84 Long term (current) use of oral hypoglycemic drugs; Z79.899 Other long term (current) drug therapy; Z85.828 Personal history of other malignant neoplasm of skin; Z85.72 Personal history of non-Hodgkin lymphomas; Z90.49 Acquired absence of other specified parts of digestive tract; Z80.0 Family history of malignant neoplasm of digestive organs
CPT/HCPCS: 36415; 80053; 81003; 83690; 84484; 85025; 85610; 85730; 96360; 99284

== ENCOUNTER → 2018-10-20 | Outpatient (CLI) | payer MEDICARE, BC ==
--- NOTE | 2018-10-20 14:36 | CT ---
EXAMINATION TYPE: CT facial bones w con DATE OF EXAM: 10/20/2018 COMPARISON: 04/21/2018 HISTORY: 82-year-old female diffuse large B-cell lymphoma, Follow up scan per patient TECHNIQUE: Contiguous axial scanning of the facial bones performed with IV Contrast, patient injected with 100 mL of Isovue 300. Coronal reconstructions performed. CT DLP: 612 mGycm Automated exposure control for dose reduction was used. FINDINGS: Right-sided CVC catheter with IJ approach. 1.9 x 1.0 cm nodule left lobe of the thyroid gland unchanged from prior body CT. Retropharyngeal cour se of the right ICA impressing on the posterior hypopharynx. The sphenoid sinus lesion appears slightly larger now measuring up to 3.5 cm versus 2.6 cm, previousl y. Unclear if this secondary to slight alteration in the patient's head positioning. Some of the prev iously seen CSF density along the posterior margin is no longer identified. The lesion continues to m easure 2.4 cm craniocaudal with erosion up through the floor of the sella. Stable partial opacification right maxillary sinus with a chronic bony deformity to the right maxilla ry sinus davis and inferior right orbit the patient's prior destructive neoplasm. Mild mucosal thicke charlene left maxillary sinus. Visualized intracranial structures show no gross abnormality. IMPRESSION: 1. THE SPHENOID SINUS LESION APPEARS SLIGHTLY LARGER NOW AT 3.5 CM VERSUS 2.6 CM, PREVIOUSLY. THIS MA Y IN PART RELATE TO SLIGHT ALTERATION IN THE PATIENT'S HEAD POSITION. HOWEVER, THE PREVIOUSLY SEEN CS F DENSITY ALONG THE POSTERIOR MARGIN IS NO LONGER DEMONSTRATED AND MAY BE DISPLACED BY ENLARGEMENT OF THE LESION. IT CONTINUES TO CHRONICALLY ERODED THE FLOOR OF THE SELLA. 2. OTHERWISE, STABLE BILATERAL MAXILLARY SINUS DISEASE AND OLD BONY DEFORMITY OF THE RIGHT MAXILLARY SINUS DAVIS AND FLOOR OF THE RIGHT ORBIT FROM THE PATIENT'S PRIOR DESTRUCTIVE NEOPLASM.
--- NOTE | 2018-10-20 15:26 | CT ---
EXAMINATION TYPE: CT ChestAbdPelvis w con DATE OF EXAM: 10/20/2018 COMPARISON: 04/21/2018 HISTORY: 82-year-old female diffuse large B-cell lymphoma, Follow up scan per patient TECHNIQUE: Contiguous axial scanning of the chest, abdomen, and pelvis performed with IV Contrast, pa tient injected with 100 mL of Isovue 300. Delayed images through the kidneys were obtained. Coronal/s agittal reconstructions performed. CT DLP: 964 mGycm Automated exposure control for dose reduction was used. FINDINGS: Chest: Right anterior chest wall injection port with catheter tip at the lower SVC. Heart normal size without pericardial effusion. Coronary vessel calcification are present. Aorta normal caliber with mild atherosclerotic arch calcifications and conventional arch vessel branc fidencio anatomy. Stable hypodense nodule left lobe of the thyroid gland. No thoracic lymphadenopathy by CT size criter ia. Mildly enlarged caliber to the right pulmonary artery 2.7 cm suggesting underlying pulmonary arterial hypertension. Stable strandy areas of scarring within the anterior mid and lower lungs. No consolidation or pleural effusion. ABDOMEN: No focal liver lesion or biliary ductal dilatation. Portal venous system is patent. Hypodense area within the uncinate process of the pancreas measures 1.3 cm, unchanged from 11/12/2016 suggesting a benign etiology. Diffuse pancreatic atrophy is redemonstrated with slight prominence of the main pancreatic duct. Gallbladder, adrenal glands, kidneys, spleen are within normal limits. No dilated small bowel, free fluid, or free air. Pohn-[id number] atherosclerotic calcifications abdominal aorta and iliac arteries. No mesenteric or retroperitoneal lymphadenopathy. Moderate stool in sigmoid diverticulosis. No pericolonic inflammatory change. PELVIS: Bladder partially distended. Uterus appears surgically absent. A structure which is suspected to repr esent the right ovary is visualized. Left ovary not clearly identified. Pelvic phleboliths. No abnorm al fluid collection in the pelvis or pelvic lymphadenopathy. BONES: Degenerative changes at the right SI joint and facet arthropathy mid to lower lumbar spine with grade 1 anterolisthesis at L4-L5. Endplate spondylosis mid to lower thoracic spine. IMPRESSION: 1. NO SUSPICIOUS LYMPHADENOPATHY OR MASS TO SUGGEST LYMPHOMATOUS INVOLVEMENT IN THE CHEST, ABDOMEN, O R PELVIS. 2. MODERATE STOOL AND SIGMOID DIVERTICULOSIS.
== END | disposition home or self-care (01) ==
LOC: RADPROMAIN 09:43
PROVIDERS: ATTEND Internal Medicine Hematology & Oncology
DX: Z03.89 Encounter for observation for other suspected diseases and conditions ruled out (principal); C83.31 Diffuse large B-cell lymphoma, lymph nodes of head, face, and neck; J32.0 Chronic maxillary sinusitis; K57.30 Diverticulosis of large intestine without perforation or abscess without bleeding; Z86.018 Personal history of other benign neoplasm; Z88.2 Allergy status to sulfonamides
CPT/HCPCS: 82565; 84520; 70487; 71260; 74177; J1642; Q9967

== ENCOUNTER → 2018-10-31 | Outpatient (CLI) | payer MEDICARE, BC ==
--- NOTE | 2018-11-02 07:32 | PE ---
EXAMINATION TYPE: PET CT fusion skull to thigh DATE OF EXAM: 10/31/2018 COMPARISON: CT chest abdomen and pelvis October 20, [address] March 02, 2016. HISTORY: Diffuse large cell lymphoma progress study originally diagnosed in face in summer 2015. TECHNIQUE: Following the intravenous administration of 14.94 mCi of F-18 FDG, whole body images are performed from the skull base to the midthigh. Images are reviewed on the computer in the coronal, a xial, and sagittal planes. Reconstructed rotating images are created on independent workstation and reviewed on the computer. A noncontrast CT is performed in conjunction with the PET scan. SCAN: Subsequent Scan FINDINGS: MEDIASTINUM MEAN SUV: 0.71 LIVER MEAN SUV: 1.88 SKULL BASE AND NECK: No areas of suspicious hypermetabolic uptake on current study. CHEST, MEDIASTINUM, AND HILAR REGION: No areas of suspicious hypermetabolic uptake. No suspicious howie nopathy. ABDOMEN AND PELVIS: No areas of suspicious hypermetabolic uptake. No suspicious adenopathy. OSSEOUS STRUCTURES: No areas of suspicious hypermetabolic uptake. OTHER CT: There is complete filling of the sphenoid sinus without abnormal hypermetabolic uptake melissa lar to prior. There is diffuse cerebral atrophy and chronic small vessel ischemic change in visualize d portion of brain parenchyma. There is redemonstration right internal jugular Mediport catheter terminating in SVC. There is fairly severe three-vessel coronary artery calcification which is noted marked underlying co ronary artery disease. Cardiomegaly is redemonstrated. There is emphysematous change with [id number] scattered parenchymal scarring. Contrast from recent CT is still seen in colonic loops. No hepatosplenomegaly. Distal colonic diverti cula. Uterus is surgically absent or markedly atrophic. Facet arthropathy lower lumbar spine. IMPRESSION: No suspicious hypermetabolic uptake or adenopathy to suggest lymphoma recurrence.
== END | disposition home or self-care (01) ==
LOC: RADPETMAIN 07:39
PROVIDERS: ATTEND Internal Medicine Hematology & Oncology
DX: C83.31 Diffuse large B-cell lymphoma, lymph nodes of head, face, and neck (principal)
CPT/HCPCS: 78815; A9552